=== PATIENT | female | born 1995 | race Caucasian/White ===

== ENCOUNTER 2019-02-13 10:59 | Inpatient (IN) | payer BC ==
[2019-02-13] MEDS ORDERED: Methylergonovine 0.2 MG/1 ML Amp IM PRN (11:49)
[2019-02-13] MEDS ORDERED: Sodium Chloride 0.9% 10 ML Syringe FLUSH PRN (11:49)
[2019-02-13] MEDS ORDERED: Water For Irrigation,Sterile 1,000 ML Container IRR PRN (11:49)
[2019-02-13] MEDS ORDERED: Misoprostol 25 MCG (1/4 of 100 MCG) Tab VAG PRN ×2 (11:49)
[2019-02-13] MEDS ORDERED: Sodium Chloride 0.9% 2.5 ML Syringe FLUSH PRN (11:49)
[2019-02-13] MEDS ORDERED: Butorphanol 1 MG/ML SDV IVPUSH PRN (11:49)
[2019-02-13] MEDS ORDERED: Nalbuphine 10 MG/1 ML Vial IVPUSH PRN (11:49)
[2019-02-13] MEDS ORDERED: Tranexamic Acid 1,000 MG in Sodium Chloride 0.9% 100 ML IV PRN (11:49)
[2019-02-13] MEDS ORDERED: Ondansetron 4 MG/2 ML SDV IV PRN (11:49)
[2019-02-13] MEDS ORDERED: Sodium Chloride 0.9% 10 ML SDV IV PRN (11:49)
[2019-02-13] MEDS ORDERED: Terbutaline 1 MG/ML SDV SUBCUT PRN (11:49)
[2019-02-13] MEDS ORDERED: Carboprost Tromethamine 250 MCG/1 ML Amp IM PRN (11:49)
[2019-02-13] MEDS ORDERED: Misoprostol 200 MCG Tab PO PRN (11:49)
[2019-02-13] MEDS ORDERED: Lidocaine 1% 50 ML MDV INJECT PRN (11:49)
[2019-02-13] MEDS ORDERED: Oxytocin/0.9 % Sodium Chloride 30 UNIT/500 ML BAG IV SCH ×2 (12:00)
[2019-02-13] MEDS: Lactated Ringers 1,000 ML IV SCH ×2 (15:41→16:21)
[2019-02-13] MEDS ORDERED: Lidocaine HCl/EPINEPHrine 5 ML IJ ONE (16:04)
--- NOTE | 2019-02-13 16:18 | PCM.PREANE ---
Preanesthetic Assessment - Anesthesia/Transfusion/Family Hx Anesthesia History: Prior Anesthesia Without Reaction Family History of Anesthesia Reaction: No Transfusion History: No Prior Transfusion(s) - Review of Systems General: No Symptoms Pulmonary: No Symptoms Cardiovascular: No Symptoms Gastrointestinal: No Symptoms Neurological: No Symptoms Other: Reports: None - Physical Assessment Height: 5 ft 9 in Weight: 82.1 kg ASA Class: 2 Mental Status: Alert & Oriented x3 Airway Class: Mallampati = 2 Dentition: Reports: Normal Dentition Thyro-Mental Finger Breadths: 3 Mouth Opening Finger Breadths: 3 ROM/Head Extension: Full Lungs: Clear to Auscultation, Normal Respiratory Effort Cardiovascular: Regular Rate, Regular Rhythm - Lab Values: Laboratory Last Values WBC 11.47 K/uL (4.0-11.0) H 02/13/19 12:12 RBC 4.52 M/uL (4.30-5.90) 02/13/19 12:12 Hgb 12.9 g/dL (12.0-16.0) 02/13/19 12:12 Hct 38.1 % (36.0-46.0) 02/13/19 12:12 MCV 84.3 fL (80.0-98.0) 02/13/19 12:12 MCH 28.5 pg (27.0-32.0) 02/13/19 12:12 MCHC 33.9 g/dL (31.0-37.0) 02/13/19 12:12 RDW Std Deviation 39.3 fl (28.0-62.0) 02/13/19 12:12 RDW Coeff of Jessica 13 % (11.0-15.0) 02/13/19 12:12 Plt Count 213 K/uL (150-400) 02/13/19 12:12 MPV 10.20 fL (7.40-12.00) 02/13/19 12:12 Nucleated RBC % 0.0 /100WBC 02/13/19 12:12 Nucleated RBCs # 0 K/uL 02/13/19 12:12 Blood Type A POSITIVE 02/13/19 12:12 Antibody Screen NEGATIVE 02/13/19 12:12 - Allergies Allergies/Adverse Reactions: Allergies Allergy/AdvReac Type Severity Reaction Status Date / Time Latex, Natural Rubber Allergy Rash Verified 10/17/14 16:30 spinach Allergy Anaphylactic Uncoded 10/17/14 16:30 Shock - Acknowledgements Anesthesia Type Planned: Epidural Pt an Appropriate Candidate for the Planned Anesthesia: Yes Alternatives and Risks of Anesthesia Discussed w Pt/Guardian: Yes Pt/Guardian Understands and Agrees with Anesthesia Plan: Yes PreAnesthesia Questionnaire HEENT History: Reports: None Cardiovascular History: Reports: None Respiratory History: Reports: None Gastrointestinal History: Reports: GERD Genitourinary History: Reports: None CONSTRUCTION FLAGGER History: Reports: Spontaneous , Other (See Below) : 6 Para: 2 LMP (Approximate): Other OB/BYN History: delivery x2. Musculoskeletal History: Reports: Arthritis Neurological History: Reports: Migraines Psychiatric History: Reports: ADHD, Bipolar Endocrine/Metabolic History: Reports: None Hematologic History: Reports: None Immunologic History: Reports: None Oncologic (Cancer) History: Reports: None Dermatologic History: Reports: None - Past Surgical History GI Surgical History: Reports: Hernia Repair/Other Neurological Surgical History: Reports: None - SUBSTANCE USE Smoking Status *Q: Current Every Day Smoker Tobacco Use Within Last Twelve Months: Cigarettes Second Hand Smoke Exposure: Yes Recreational Drug Use History: No - HOME MEDS Home Medications: Home Meds Calcium Carbonate [Tums] 300 mg PO DAILY 02/12/19 [History] Bts449/FA/Omega3/Dha/Fish Oil [ Gummies] 1 each PO TID PRN 02/12/19 [ History] - CURRENT (IN HOUSE) MEDS Current Meds: Current Medications Butorphanol Tartrate (Stadol) 1 mg IVPUSH Q1H PRN PRN Reason: Pain Carboprost Tromethamine (Hemabate Ds) 250 mcg IM ASDIRECTED PRN PRN Reason: Post Hemorrhage Lactated Ringer's (Ringers, Lactated) 1,000 mls @ 150 mls/hr IV ASDIRECTED ZOILA Last Admin: 02/13/19 15:41 Dose: 150 mls/hr Oxytocin/Sodium Chloride (Oxytocin 30 Unit/500 Ml-Ns) 30 unit in 500 mls @ 999 mls/hr IV TITRATE ZOILA Oxytocin/Sodium Chloride (Oxytocin 30 Unit/500 Ml-Ns) 30 unit in 500 mls @ 2 mls/hr IV TITRATE ZOILA; Protocol Last Titration: 02/13/19 14:32 Dose: 8 munits/min, 8 mls/hr Tranexamic Acid 1,000 mg/ (Sodium Chloride) 110 mls @ 660 mls/hr IV ONETIME PRN PRN Reason: Bleeding Lidocaine HCl (Xylocaine 1%) 50 ml INJECT ONETIME PRN PRN Reason: Laceration repair Methylergonovine Maleate (Methergine) 0.2 mg IM ASDIRECTED PRN PRN Reason: Post Hemorrhage Misoprostol (Cytotec) 200 mcg PO ONETIME PRN PRN Reason: Post Hemorrhage Misoprostol (Cytotec) 25 mcg VAG ONETIME PRN PRN Reason: Cervical Ripening Misoprostol (Cytotec) 25 mcg VAG Q4H PRN PRN Reason: Cervical Ripening Nalbuphine HCl (Nubain) 10 mg IVPUSH Q1H PRN PRN Reason: Pain (severe 7-10) Ondansetron HCl (Zofran) 4 mg IV Q4H PRN PRN Reason: Nausea/Vomiting Sodium Chloride (Saline Flush) 10 ml FLUSH ASDIRECTED PRN PRN Reason: Keep Vein Open Sodium Chloride (Saline Flush) 2.5 ml FLUSH ASDIRECTED PRN PRN Reason: Keep Vein Open Sodium Chloride (Normal Saline) 10 ml IV ASDIRECTED PRN PRN Reason: IV Use Sterile Water (Sterile Water For Irrigation) 1,000 ml IRR ASDIRECTED PRN PRN Reason: delivery Terbutaline Sulfate (Brethine) 0.25 mg SUBCUT ASDIRECTED PRN PRN Reason: Tacysystole Discontinued Medications Fentanyl/Bupivacaine HCl (Hczbxuji-Xpcdj-Ua 2 Mcg/Ml-0.125%) Confirm Administered Dose 100 mls @ as directed .ROUTE .STK-MED ONE Stop: 02/13/19 16:05 Lidocaine/Epinephrine (Lidocaine 1.5%-Epi 1:200,000) Confirm Administered Dose 5 ml IJ .STK-MED ONE Stop: 02/13/19 16:05
[2019-02-13] MEDS ORDERED: Ibuprofen 400 MG Tab PO PRN (20:21)
[2019-02-13] MEDS ORDERED: Witch Hazel Medicated Pads 40/Jar TOP PRN (20:21)
[2019-02-13] MEDS ORDERED: Acetaminophen 500 MG Tab PO PRN ×2 (20:21)
[2019-02-13] MEDS ORDERED: oxyCODONE 5 MG Tab PO PRN (20:21)
[2019-02-13] MEDS ORDERED: Docusate Sodium 100 MG Cap PO PRN (20:21)
[2019-02-13] MEDS ORDERED: Bisacodyl 10 MG Supp RECTAL PRN (20:21)
[2019-02-13] MEDS ORDERED: Lanolin 100% Cream 7 GM Tube TOP PRN (20:21)
[2019-02-13] MEDS ORDERED: Benzocaine/Menthol 20%-0.5% Spray 78 GM Cannister TOP PRN (20:21)
--- NOTE | 2019-02-13 20:29 | PCM.OPNOTE ---
- General Post-Op/Procedure Note Date of Surgery/Procedure: 02/13/19 Operative Procedure(s): /IP Findings: Viable female APGARs 8, 9 weight 3340 gm. Spontaneous delivery intact placenta with 3V cord Pre Op Diagnosis: 37/5 week IUP. SROM Post-Op Diagnosis: Same Anesthesia Technique: Epidural Primary Surgeon: Brainne Rodriguez EBL in mLs: 300 Complications: none known Condition: Good Free Text/Narrative:: Dictation [id number]
[2019-02-13] MEDS: Ibuprofen 800 MG Tab PO PRN (23:11)
[2019-02-14] MEDS: Ibuprofen 800 MG Tab PO PRN ×3 (08:42→21:16)
--- NOTE | 2019-02-14 11:41 | PCM.PNPP ---
- General Info Date of Service: 02/14/19 Functional Status: Reports: Pain Controlled, Tolerating Diet, Ambulating, Urinating - Review of Systems General: Denies: Fever, Weakness, Fatigue Pulmonary: Denies: Shortness of Breath Cardiovascular: Denies: Chest Pain, Palpitations, Lightheadedness Gastrointestinal: Denies: Abdominal Pain, Nausea, Vomiting Genitourinary: Denies: Flank Pain Skin: Reports: No Symptoms Neurological: Reports: No Symptoms Psychiatric: Reports: No Symptoms - General Info Date of Service: 02/14/19 - Patient Data Vital Signs - Most Recent: Last Vital Signs Temp 36.8 C 02/14/19 08:27 Pulse 83 02/14/19 08:27 Resp 20 02/14/19 08:27 BP 137/70 02/14/19 08:27 Pulse Ox 96 02/14/19 08:27 Weight - Most Recent: 82.1 kg Lab Results - Last 24 Hours: Laboratory Results - last 24 hr 02/13/19 02/13/19 02/13/19 Range/Units 12:12 12:12 20:22 WBC 11.47 H (4.0-11.0) K/uL RBC 4.52 (4.30-5.90) M/uL Hgb 12.9 (12.0-16.0) g/dL Hct 38.1 (36.0-46.0) % MCV 84.3 (80.0-98.0) fL MCH 28.5 (27.0-32.0) pg MCHC 33.9 (31.0-37.0) g/dL RDW Std Deviation 39.3 (28.0-62.0) fl RDW Coeff of Jessica 13 (11.0-15.0) % Plt Count 213 (150-400) K/uL MPV 10.20 (7.40-12.00) fL Nucleated RBC % 0.0 /100WBC Nucleated RBCs # 0 K/uL Cord ABG pH (7.18-7.38) Cord ABG Base Excess (-10--2) Cord VBG pH 7.358 (7.25-7.45) Cord VBG Base Excess -5 (-10--2) Blood Type A POSITIVE Antibody Screen NEGATIVE 02/13/19 02/14/19 Range/Units 20:23 05:54 WBC (4.0-11.0) K/uL RBC (4.30-5.90) M/uL Hgb 11.9 L (12.0-16.0) g/dL Hct 36.1 (36.0-46.0) % MCV (80.0-98.0) fL MCH (27.0-32.0) pg MCHC (31.0-37.0) g/dL RDW Std Deviation (28.0-62.0) fl RDW Coeff of Jessica (11.0-15.0) % Plt Count (150-400) K/uL MPV (7.40-12.00) fL Nucleated RBC % /100WBC Nucleated RBCs # K/uL Cord ABG pH 7.262 (7.18-7.38) Cord ABG Base Excess -4 (-10--2) Cord VBG pH (7.25-7.45) Cord VBG Base Excess (-10--2) Blood Type Antibody Screen Med Orders - Current: Current Medications Acetaminophen (Tylenol Extra Strength) 500 mg PO Q4H PRN PRN Reason: Pain Acetaminophen (Tylenol Extra Strength) 1,000 mg PO Q4H PRN PRN Reason: Pain Benzocaine/Menthol (Dermoplast Pain Relief 20%-0.5% [place]) 78 gm TOP ASDIRECTED PRN PRN Reason: Perineal Comfort Measure Bisacodyl (Dulcolax) 10 mg RECTAL ONETIME PRN PRN Reason: Constipation Carboprost Tromethamine (Hemabate Ds) 250 mcg IM ASDIRECTED PRN PRN Reason: Post Hemorrhage Docusate Sodium (Colace) 100 mg PO BID PRN PRN Reason: Constipation Emollient Ointment (Lansinoh Hpa) 0 gm TOP ASDIRECTED PRN PRN Reason: Sore Nipples Lactated Ringer's (Ringers, Lactated) 1,000 mls @ 150 mls/hr IV ASDIRECTED ZOILA Last Admin: 02/13/19 16:21 Dose: 150 mls/hr Oxytocin/Sodium Chloride (Oxytocin 30 Unit/500 Ml-Ns) 30 unit in 500 mls @ 999 mls/hr IV TITRATE ZOILA Oxytocin/Sodium Chloride (Oxytocin 30 Unit/500 Ml-Ns) 30 unit in 500 mls @ 2 mls/hr IV TITRATE ZOILA; Protocol Last Titration: 02/13/19 19:48 Dose: 0 munits/min, 0 mls/hr Tranexamic Acid 1,000 mg/ (Sodium Chloride) 110 mls @ 660 mls/hr IV ONETIME PRN PRN Reason: Bleeding Ibuprofen (Motrin) 400 mg PO Q4H PRN PRN Reason: Pain Ibuprofen (Motrin) 800 mg PO Q6H PRN PRN Reason: Pain Last Admin: 02/14/19 08:42 Dose: 800 mg Methylergonovine Maleate (Methergine) 0.2 mg IM ASDIRECTED PRN PRN Reason: Post Hemorrhage Ondansetron HCl (Zofran) 4 mg IV Q4H PRN PRN Reason: Nausea/Vomiting Oxycodone HCl (Oxycodone) 5 mg PO Q2H PRN PRN Reason: Pain Sodium Chloride (Saline Flush) 10 ml FLUSH ASDIRECTED PRN PRN Reason: Keep Vein Open Sodium Chloride (Saline Flush) 2.5 ml FLUSH ASDIRECTED PRN PRN Reason: Keep Vein Open Sodium Chloride (Normal Saline) 10 ml IV ASDIRECTED PRN PRN Reason: IV Use Sterile Water (Sterile Water For Irrigation) 1,000 ml IRR ASDIRECTED PRN PRN Reason: delivery Last Admin: 02/13/19 19:55 Dose: 1,000 ml Witch Mary (Tucks) 1 pad TOP ASDIRECTED PRN PRN Reason: comfort care Discontinued Medications Butorphanol Tartrate (Stadol) 1 mg IVPUSH Q1H PRN PRN Reason: Pain Fentanyl/Bupivacaine HCl (Mpdklrin-Wvwre-Hx 2 Mcg/Ml-0.125%) Confirm Administered Dose 100 mls @ as directed .ROUTE .STK-MED ONE Stop: 02/13/19 16:05 Last Admin: 02/14/19 00:29 Dose: Not Given Lidocaine HCl (Xylocaine 1%) 50 ml INJECT ONETIME PRN PRN Reason: Laceration repair Lidocaine/Epinephrine (Lidocaine 1.5%-Epi 1:200,000) Confirm Administered Dose 5 ml IJ .STK-MED ONE Stop: 02/13/19 16:05 Last Admin: 02/14/19 00:29 Dose: Not Given Misoprostol (Cytotec) 200 mcg PO ONETIME PRN PRN Reason: Post Hemorrhage Misoprostol (Cytotec) 25 mcg VAG ONETIME PRN PRN Reason: Cervical Ripening Misoprostol (Cytotec) 25 mcg VAG Q4H PRN PRN Reason: Cervical Ripening Nalbuphine HCl (Nubain) 10 mg IVPUSH Q1H PRN PRN Reason: Pain (severe 7-10) Terbutaline Sulfate (Brethine) 0.25 mg SUBCUT ASDIRECTED PRN PRN Reason: Tacysystole - Infant Interaction Support Person: - Exam General: Alert, Oriented Lungs: Clear to Auscultation, Normal Respiratory Effort Cardiovascular: No: Regular Rate, Regular Rhythm GI/Abdominal Exam: Soft, Non-Tender Extremities: Pedal Edema (2+). No: Kg's Sign Skin: Warm, Dry, Intact Neurological: No New Focal Deficit Psy/Mental Status: Alert, Normal Affect, Normal Mood - Problem List & Annotations (1) Vaginal delivery SNOMED Code(s): 069066775 Code(s): O80 - ENCOUNTER FOR FULL-TERM UNCOMPLICATED DELIVERY Status: Acute Current Visit: Yes - Problem List Review Problem List Initiated/Reviewed/Updated: Yes - My Orders Last 24 Hours: My Active Orders 02/13/19 11:49 Carboprost Tromethamine [Hemabate DS] 250 mcg IM ASDIRECTED PRN Methylergonovine [Methergine] 0.2 mg IM ASDIRECTED PRN Ondansetron [Zofran] 4 mg IV Q4H PRN Sodium Chloride 0.9% [Normal Saline] 10 ml IV ASDIRECTED PRN Sodium Chloride 0.9% [Saline Flush] 10 ml FLUSH ASDIRECTED PRN Sodium Chloride 0.9% [Saline Flush] 2.5 ml FLUSH ASDIRECTED PRN Tranexamic Acid [Cyklokapron] 1,000 mg Sodium Chloride 0.9% [Normal Saline] 100 ml IV ONETIME Water For Irrigation,Sterile [Sterile Water for Irrigation] 1,000 ml IRR ASDIRECTED PRN Resuscitation Status Routine 02/13/19 11:54 Patient Status [ADT] Routine Oxygen Therapy [RC] ASDIRECTED Vital Signs [RC] PER UNIT ROUTINE Peripheral IV Insertion Adult [OM.PC] Routine 02/13/19 12:00 Lactated Ringers [Ringers, Lactated] 1,000 ml IV ASDIRECTED Oxytocin/0.9 % Sodium Chloride [Oxytocin 30 Unit/500 ML-NS] 30 unit in 500 ml IV TITRATE Oxytocin/0.9 % Sodium Chloride [Oxytocin 30 Unit/500 ML-NS] 30 unit in 500 ml IV TITRATE Medication Administration Instruction [OM.PC] Q3H 02/13/19 20:21 Acetaminophen [Tylenol Extra Strength] 1,000 mg PO Q4H PRN Acetaminophen [Tylenol Extra Strength] 500 mg PO Q4H PRN Benzocaine/Menthol [Dermoplast Pain Relief 20%-0.5% [place]] 78 gm TOP ASDIRECTED PRN Bisacodyl [Dulcolax] 10 mg RECTAL ONETIME PRN Docusate Sodium [Colace] 100 mg PO BID PRN Ibuprofen [Motrin] 400 mg PO Q4H PRN Ibuprofen [Motrin] 800 mg PO Q6H PRN Lanolin [Lansinoh HPA] See Dose Instructions TOP ASDIRECTED PRN Witch Mary [Tucks] 1 pad TOP ASDIRECTED PRN oxyCODONE 5 mg PO Q2H PRN Breast Pump [WOMSER] Per Unit Routine 02/13/19 20:22 Patient Status [ADT] Routine May Shower [RC] ASDIRECTED Up ad Ernestina [RC] ASDIRECTED Vital Signs [RC] PER UNIT ROUTINE Assess Lochia [WOMSER] Per Unit Routine Assess Uterine Involution [WOMSER] Per Unit Routine Ice Therapy [OM.PC] Per Unit Routine Perineal Care [OM.PC] Per Unit Routine Peripheral IV Discontinue [OM.PC] Routine 02/13/19 Dinner Regular Diet [DIET] 02/14/19 11:39 Ready for Discharge [RC] PER UNIT ROUTINE - Assessment Assessment:: PPD 1 status post - Plan Plan:: Patient is feeling well overall, discharge to home. Discharge instructions reviewed. Follow up at [facility] 6 weeks.
--- NOTE | 2019-02-15 08:16 | OR ---
SURGEON: Brianne Rodriguez M.D. DATE OF PROCEDURE: 02/13/2019 PREOPERATIVE DIAGNOSES: 1. 37 and 5 weeks' intrauterine . 2. Spontaneous rupture of membranes. POSTOPERATIVE DIAGNOSES: 1. 37 and 5 weeks' intrauterine . 2. Spontaneous rupture of membranes. PROCEDURE: Spontaneous vaginal delivery, intact perineum. ANESTHESIA: Epidural. ESTIMATED BLOOD LOSS: 300 mL. COMPLICATIONS: None. FINDINGS: Viable female. scores of 8 at 1 minute and 9 at 5 minutes. Weight of 3340 g. Spontaneous delivery, intact placenta, 3-vessel cord. DISPOSITION: to nursery, mom in LDRP. INDICATION: Stephie is a 23-year-old G6, P0-2-3-2, at 37 and 5 weeks gestation, who presented on the morning of 02/13/2019 with leakage of fluid since 8:30 p.m. the night before. She is group B strep negative. On exam, she is grossly ruptured with clear fluid; therefore, she was admitted and routine labs were drawn. Since, she has been ruptured for over 12 hours with no evidence of active labor, we started Pitocin augmentation. heart tones are category 1. She is 4 cm. The patient responded nicely to Pitocin, began to progress, became increasingly uncomfortable, underwent regional anesthesia from epidural. At that time, she was 5 cm. In next few hours, she progressed to complete, 100% effaced, -2 station, I was called for delivery. Upon my arrival, patient placed in modified dorsal lithotomy position, and was able to start pushing efforts, pushed adequately and was able to deliver 's head atraumatically and spontaneously. There was a nuchal cord x2 noted. The shoulders did not initially easily deliver. Therefore, the patient was placed in Steffany positioning, suprapubic pressure was applied, rotated shoulders and easily was able to deliver at that time, followed by remainder of the body. Nuchal cord x2 was reduced manually. The infant's oropharynx and nares bulb suctioned. Cord was clamped x2 and cut. The was handed off to her mother, attending nursing staff side. Cord arterial, cord venous, cord blood samples were obtained. Light pressure was applied while the placenta was delivered spontaneously intact. Vigorous fundal uterine massage was then applied while 30 units of Pitocin was delivered in 500 mL of fluid. Upon inspection of cervix, vaginal sidewalls, and perineum, these were found to be intact. The patient tolerated this procedure well. Hemostasis remained evident. Uterus remained firm. Sponge count was correct. The patient remained in LDRP. to nursery. SASKIA / JACKIE /[id number]
== END 2019-02-14 22:30 | disposition home or self-care (01) | DRG 560 ==
LOC: MW.OBCHECK 10:59 → MW.OB 11:01 → MW.OBCHECK 11:45 → MW.OB 11:49 → OBSVTOIN 20:00 → MW.OB 02-14 02:08
PROVIDERS: ADMIT Obstetrics & Gynecology; ATTEND Obstetrics & Gynecology
PROC: 10E0XZZ Delivery of Products of Conception, External Approach (ICD-10-PCS; principal; 2019-02-13)
PROC: 6A550ZT Pheresis of Cord Blood Stem Cells, Single (ICD-10-PCS; principal; 2019-02-13)
PROC: 00HU33Z Insertion of Infusion Device into Spinal Canal, Percutaneous Approach (ICD-10-PCS; 2019-02-13)
PROC: 3E0R3BZ Introduction of Anesthetic Agent into Spinal Canal, Percutaneous Approach (ICD-10-PCS; 2019-02-13)
DX: O42.92 Full-term premature rupture of membranes, unspecified as to length of time between rupture and onset of labor (principal); O99.334 Smoking (tobacco) complicating childbirth; F17.210 Nicotine dependence, cigarettes, uncomplicated; O99.62 Diseases of the digestive system complicating childbirth; Z3A.37 37 weeks gestation of pregnancy; Z37.0 Single live birth; K21.9 Gastro-esophageal reflux disease without esophagitis; O69.81X0 Labor and delivery complicated by cord around neck, without compression, not applicable or unspecified
CPT/HCPCS: 36415; 59025; 59409; 82803; 85014; 85018; 85027; 86850; 86900; 86901; A9270-GY; J2590; J7120